=== PATIENT | male | born 1950 | race African-American/Black ===

== ENCOUNTER 2016-11-05 08:56 | Inpatient (IN) | payer BC ==
[2016-11-02 18:52] VITALS: BMI 25.3
[~2016-11-05] VITALS: Ht 167.6 cm; Wt 70.0 kg
[2016-11-05] VITALS (30 sets, daily range): BP systolic 122–150; BP diastolic 69–99; PULSE 74–97; RESP 14–21; Ht 167.6 cm; Wt 70.0 kg
[~2016-11-05 08:56] MED LIST: CEFAZOLIN 1 GM INJ ONE; ROCURONIUM 50 MG INJ ONE
[2016-11-05] MEDS ORDERED: AMLO5TAB4 PO (10:11)
[2016-11-05] MEDS ORDERED: POLYMYXIN/BACITRACIN 1L IRRIG ONE (10:25)
[2016-11-05] MEDS ORDERED: BUPIVACAINE 0.25%/EPI (SDV) 30 ML INJ ONE (10:29)
[2016-11-05] MEDS ORDERED: BUPIVACAINE 0.25% (MPF) 10 ML 10 ML VIAL ONE (10:29)
[2016-11-05] MEDS ORDERED: SURGIFOAM POWDER 1 GM KIT ONE (10:29)
[2016-11-05] MEDS ORDERED: FENTAnyl 50 MCG/ML VIAL ONE (10:30)
[2016-11-05] MEDS ORDERED: THROMBIN 5000 UNIT VIAL ONE ×2 (10:30→12:37)
[2016-11-05] MEDS ORDERED: SODIUM CL BACTERIOSTATIC 30 ML INJ ONE (10:30)
[2016-11-05] MEDS ORDERED: CA CHLORIDE 10% 10 ML SYRINGE ONE (10:30)
[2016-11-05] MEDS: D5W-0.45 NACL + KCL 20 MEQ 1,000 ML IV SCH ×3 (11:04→19:51)
--- NOTE | 2016-11-05 11:04 | HPN ---
Date/Time of Note Date/Time of Note DATE: 11/05/16 TIME: 11:04 Interval H&P Admission Note Pt. seen H&P reviewed: No system changes KAT ABDI MD Nov 05, 2016 11:04
[2016-11-05] MEDS ORDERED: GELATIN SIZE 100 SPONGE ONE (11:06)
[2016-11-05] MEDS ORDERED: LIDOCAINE 2% (SDV) 5 ML INJ ONE (11:09)
[2016-11-05] MEDS ORDERED: PROPOFOL 20 ML ONE (11:09)
[2016-11-05] MEDS ORDERED: DIPHENHYDRAMINE 25 MG CAP PO PRN (11:30)
[2016-11-05] MEDS ORDERED: BISACODYL 10 MG SUPP PR PRN (11:30)
[2016-11-05] MEDS ORDERED: NALOXONE (0.4 MG/ML) INJ IV PRN (11:30)
[2016-11-05] MEDS ORDERED: CYCLOBENZAPRINE 10 MG TAB PO PRN (11:30)
[2016-11-05] MEDS ORDERED: AL HYDROX/MG HYDROX/SIMETH 30 ML CUP PO PRN (11:30)
[2016-11-05] MEDS ORDERED: CEPASTAT LOZENGE MT PRN (11:30)
[2016-11-05] MEDS ORDERED: ACETAMINOPHEN 325 MG TAB PO PRN (11:30)
[2016-11-05] MEDS ORDERED: DIPHENHYDRAMINE 50 MG INJ IV PRN (11:30)
[2016-11-05] MEDS ORDERED: HYDROmorphONE 0.2 MG/ML PCA IV SCH (11:30)
[2016-11-05] MEDS ORDERED: CEFAZOLIN 1 GM INJ ONE (11:41)
[2016-11-05] MEDS ORDERED: HEPARIN 1000 UNITS/ML 10 ML INJ ONE (11:45)
[2016-11-05] MEDS: CEFAZOLIN 1 GM/50 ML (PMX) 50 ML IVPB SCH ×2 (12:00→19:51)
[2016-11-05] MEDS ORDERED: MEPERIDINE 100 MG INJ ONE (12:05)
[2016-11-05] MEDS ORDERED: THROMBIN(HUM PLAS)/FIBRINOG/CA 5 ML VIAL TOP ONE (12:46)
[2016-11-05] MEDS ORDERED: EPHEDrine SULFATE 50 MG/5 ML SYG IV PRN (13:00)
[2016-11-05] MEDS ORDERED: hydrALAzine 20 MG INJ IV PRN (13:00)
[2016-11-05] MEDS ORDERED: HYDROmorphONE (0.2 MG/ML) 10ML SYG IV PRN ×3 (13:00)
[2016-11-05] MEDS ORDERED: FENTAnyl 50 MCG/ML VIAL IV PRN ×3 (13:00)
[2016-11-05] MEDS ORDERED: LABETALOL HCL 20MG INJ IV PRN (13:00)
[2016-11-05] MEDS ORDERED: MEPERIDINE 25 MG INJ IV PRN (13:00)
[2016-11-05] MEDS ORDERED: ONDANSETRON 4 MG INJ IV PRN (13:00)
[2016-11-05] MEDS ORDERED: SURGIFOAM POWDER 1 GM KIT MM ONE (13:45)
[2016-11-05] MEDS ORDERED: CEFAZOLIN 1 GM INJ ZFS ONE (13:46)
[2016-11-05] MEDS ORDERED: DEXAMETHASONE 4 MG/ML 1 ML INJ ONE (14:05)
[2016-11-05] MEDS ORDERED: ONDANSETRON 4 MG INJ ONE (14:05)
--- NOTE | 2016-11-05 14:31 | RADRPT ---
PROCEDURE: Intraoperative XR. CLINICAL INDICATION: Intraoperative radiograph during lumbar spine surgery. TECHNIQUE: Spot intraoperative lateral lumbar x-ray image was provided. The images were reviewed on a high-resolution PACS workstation. COMPARISON: None available FINDINGS: Spot intraoperative lateral lumbar view were provided during lumbar spine surgery. The images demon strate metallic probes at the level of L3-4 and L5. IMPRESSION: 1. Spot intraoperative lateral lumbar view during lumbar surgery were provided. 2. Please see operative report of the same day for further information. RPTAT: DD .Ham Rivera MD, MD Date Time Electronically viewed and signed by .Ham Rivera MD, on 11/05/2016 14:31 .S/
--- NOTE | 2016-11-05 14:32 | RADRPT ---
PROCEDURE: Intraoperative XR. CLINICAL INDICATION: Intraoperative radiograph during lumbar spine surgery. TECHNIQUE: Spot intraoperative lateral lumbar x-ray image was provided. The images were reviewed on a high-resolution PACS workstation. COMPARISON: None available FINDINGS: Spot intraoperative lateral lumbar view were provided during lumbar spine surgery. The images demon strate metallic instrumentation at the level of L4-5 and L5-S1. IMPRESSION: 1. Spot intraoperative lateral lumbar view during lumbar spine surgery were provided. 2. Please see operative report of the same day for further information. RPTAT: HGAS .Ham Rivera MD, Date Time Electronically viewed and signed by .Ham Rivera MD, on 11/05/2016 14:32 .S/
[2016-11-05] MEDS ORDERED: METOCLOPRAMIDE 10 MG INJ ONE (15:15)
[2016-11-05] MEDS ORDERED: METOCLOPRAMIDE 10 MG INJ IV ONE (15:30)
--- NOTE | 2016-11-05 16:11 | OPPN ---
Date/Time of Note Date/Time of Note DATE: 11/05/16 TIME: 16:11 Post-Anesthesia Notes Post-Anesthesia Note Last documented vital signs Vital Signs Date Time Temp Pulse Resp B/P Pulse Ox O2 Delivery O2 Flow Rate FiO2 11/05/16 14:30 98.7 11/05/16 14:23 90 16 141/99 99 Nasal Cannula 2.0 Activity: WNL Respiratory function: WNL Cardiovascular function: WNL Mental status: Baseline Pain reasonably controlled: Yes Hydration appropriate: Yes Nausea/Vomiting absent: Yes VINCENZO SANDOVAL Nov 05, 2016 16:11
--- NOTE | 2016-11-05 16:51 | OPR ---
DATE OF OPERATION: 11/05/2016 PREOPERATIVE DIAGNOSES: 1. L4-L5 and L5-S1 stenosis. 2. Previous L4-L5 decompression. 3. Lumbosacral radiculopathy. POSTOPERATIVE DIAGNOSES: 1. L4-L5 and L5-S1 stenosis. 2. Previous L4-L5 decompression. 3. Lumbosacral radiculopathy. PROCEDURES: 1. Central decompressive laminectomy at L4-L5 and L5-S1 and decompression of L4, L5, S1 nerve roots bilaterally. 2. Repair of dural tear. 3. Lateral localizing film x2. 4. Intraoperative neuromonitoring (2 hours). PRIMARY SURGEON: Jamie Chou MD INFORMATION TECHNOLOGY ASSISTANT: EYAL Joaquin NEED FOR DISH TECHNICIAN: During this spinal surgical procedure, my assistant center director was used to retrac t and protect the spinal nerves and dural sac. My assistant center director also employed the suction catheters to evacuate blood from the surgical field to improve visualization of the neural structures. The quique tant was medically necessary to facilitate the completion of the surgery in a safe and expeditious m skyler. State of [place] regulations, as well as hospital bylaws, preclude the use of non-license d health care personnel, such as operating room technicians, to perform these functions. FINDINGS: Neuromonitoring at start of the case revealed right L4 amplitude down 40%, bilateral L5 a nd S1 amplitude down 30%. At end of the case, all nerve signals returned to normal. A small centra l annular tear was identified at the L4-L5 level. ESTIMATED BLOOD LOSS: 100 mL DRAINS: 1 SPECIMENS: Spinous process sent to Pathology. COMPLICATIONS OF PROCEDURE: Dural tear. ANESTHESIOLOGIST: Dr. Hood TYPE OF ANESTHESIA: General anesthesia. INDICATIONS FOR PROCEDURE: This is a 66-year-old gentleman with lumbosacral radiculopathy bilateral ly. He had previously undergone L4-L5 decompression elsewhere. He continued to have symptoms. The refore, I recommended proceeding with the above-mentioned surgery. Preoperatively we discussed risk s, benefits, alternatives. He understood, wished to proceed. DESCRIPTION OF PROCEDURE IN DETAIL: The patient was identified in preoperative holding area, given Ancef antibiotic, taken to the operating room, where he was successfully placed under general anesth esia by Dr. Hood. Neuromonitoring leads were placed. Sequential compressive devices were applied. Hammond catheter was introduced. Neuromonitoring was utilized during the procedure for 2 hours to in clude SSEP, MEP and EMG. This was performed by [place]. Start time was 12:00 p.m., closur e time was 2:00 p.m. The patient was placed on the operating table in prone position over Lucas fr ria. All bony prominences were padded. The back was then prepped, draped in usual sterile fashion. Spinal needles were placed. Lateral localizing film was obtained to confirm the correct levels. Once this was confirmed, I injected the paraspinal musculature with 0.25% Marcaine and epinephrine. An incision was then made over the L4-L5 and L5-S1 levels. Incision was taken down to the dorsal f ascia, which was incised with Bovie cautery. I then subperiosteally dissected the L4, L5 and S1 lei ursula. Kerrisons were placed under the lamina of L4 and L5, and a repeat lateral film was obtained to confirm the correct levels. Once this was confirmed, central decompressive laminectomy was perform ed at the L4-L5 and L5-S1 levels. Lateral recess was decompressed. Ligamentum flavum was then melva laine. I then decompressed the L4, L5 and S1 nerve roots bilaterally throughout their intraspinal cou rse. Once this was done, all nerve signals returned to normal. Hemostasis was achieved with bipola r cautery, Surgifoam, Gelfoam and thrombin. I used bone wax on the bony edges. Essentially, there was a very small pinpoint tear. It is not clear if this was due to a previous epidural or due to th e scar tissue. Of note, scar tissue was identified at the L4-L5 level from the previous surgeries, complicating this level. The hole was too small for a stitch repair, and therefore after I irrigate d the wound, I placed DuraGen overlying the tear followed by injection of Evicel while the anesthesi ologist held respirations 2 minutes. Once this was done, the Evicel was hardened, and I did not tommy ntify any other leaks. Retractors were removed, and I placed a deep subfascial drain, staying close to the fascia, not directly over the dura. I then closed the fascia with a #1 Stratafix suture. I then closed subcutaneous tissue with 2-0 Vicryl stitch. A 4-0 Monocryl closure was then performed. Dermabond and sterile dressings were then applied. The patient was then awakened from anesthesia and taken to the recovery room in stable condition. Lap, sponge and instrument counts correct x2. The patient will be admitted to [facility] for postoperative neurovascular checks, antibiotics, and physical therapy will be started on postoperative day 1 if the patient has no headaches. Dictated By: JAMIE RESENDIZ/SUN Conf#: [id number] DID#: [id number]
[2016-11-05] MEDS: ONDANSETRON 4 MG INJ IV PRN (18:03)
[2016-11-05] MEDS: DOCUSATE SODIUM 100 MG CAP PO SCH (19:52)
--- NOTE | 2016-11-05 22:30 | CONS ---
DATE OF ADMISSION: 11/05/2016 DATE OF CONSULTATION: 11/05/2016 REASON FOR CONSULTATION: Thank you very much for allowing me to evaluate this 66-year-old male who just underwent lumbar back surgery. HISTORICAL EVENTS: As you well know, this patient began having pain involving his back and related left leg pain in early 2015 and, in November, he underwent microsurgical diskectomies. Because of recurr ence of his pain, he ultimately underwent evaluation by you and, because of no improvement after epi dural injections, elected to proceed with surgery. Postoperatively, on the orthopedic floor, he is comfortable without shortness of breath, cough, wheezing, or chest pain. He does note some mild keli sea without abdominal pain. PAST MEDICAL HISTORY: Unrevealing except for hypertension, hyperlipidemia, benign prostatic hypertr ophy. MEDICATIONS: Amlodipine 5 day. ALLERGIES: NONE. PHYSICAL EXAMINATION: GENERAL: Somnolent male in no acute distress. VITAL SIGNS: BP 122/80, pulse 70, respirations are 20. He was afebrile. EYES: Extraocular muscles were full. NOSE, MOUTH, AND THROAT: Normal. NECK: Supple. There was no jugular venous distention, thyroid enlargement, or adenopathy. LUNGS: Clear. HEART: Rhythm regular. No murmur. No third or fourth sound. ABDOMEN: Nontender. Liver and spleen were not palpable. No masses or tenderness were noted. EXTREMITIES: No edema, no calf tenderness. NEUROLOGIC: No lateralizing motor weakness. IMPRESSION: 1. Stable postop lumbar back surgery. 2. History of hypertension. We will resume amlodipine 10 and hold the same if systolic less than 1 20. 3. Will evaluate daily for signs and symptoms of thromboembolic disease. Dictated By: QUAN PAZ/SUN Conf#: [id number] DID#: [id number] CC: KAT ABDI MD;*EndCC*
[2016-11-06] MEDS: CEFAZOLIN 1 GM/50 ML (PMX) 50 ML IVPB SCH (04:27)
[2016-11-06] MEDS: ONDANSETRON 4 MG INJ IV PRN (04:27)
[2016-11-06 04:50] LABS: ADD SCAN DIFF NO
[2016-11-06 04:51] VITALS: BP 122/75; PULSE 89; RESP 18
[2016-11-06 04:58] LABS: POTASSIUM 3.8 mmol/L (3.5-5.1)
[2016-11-06 04:59] LABS: BASOPHILS % 0.1 % (0.0-2.0); HEMATOCRIT 38.5 % (42.0-52.0); HEMOGLOBIN 12.9 g/dl (14.0-18.0); LYMPHOCYTES # 0.8 10^3/ul (0.8-2.9); LYMPHOCYTES % 6.8 % (15.0-51.0); MEAN CORPUSCULAR HEMOGLOBIN 31.4 pg (29.0-33.0); MEAN CORPUSCULAR HGB CONC 33.5 g/dl (32.0-37.0); MEAN CORPUSCULAR VOLUME 93.7 fl (82.0-101.0); MEAN PLATELET VOLUME 9.6 fl (7.4-10.4); MONOCYTES % 8.7 % (0.0-11.0); NEUTROPHIL # 9.6 10^3/ul (1.6-7.5); NEUTROPHILS % 83.9 % (39.0-77.0); PLATELET COUNT 229 10^3/UL (140-415); RED BLOOD COUNT 4.11 10^6/ul (4.70-6.10); RED CELL DISTRIBUTION WIDTH 12.7 % (11.5-14.5); WHITE BLOOD COUNT 11.5 10^3/ul (4.8-10.8)
[2016-11-06 05:10] VITALS: BP 151/90; PULSE 96; RESP 19
[2016-11-06 05:15] VITALS: BP_SYST 14; BP_SYST 147; BP_DIAS 86; PULSE 90; RESP 19
[2016-11-06 05:31] LABS: CALCIUM 8.5 mg/dl (8.4-10.2); CREATININE 0.75 mg/dl (0.61-1.24); MAGNESIUM 1.8 mg/dl (1.7-2.5)
[2016-11-06] MEDS ORDERED: PANTOPRAZOLE 40 MG INJ IV SCH (06:00)
[2016-11-06 06:39] VITALS: BP 133/74; PULSE 83; RESP 18
--- NOTE | 2016-11-06 08:31 | CONS ---
Date/Time of Note Date/Time of Note DATE: 11/06/16 TIME: 08:26 Assessment/Plan Assessment/Plan Additional Assessment/Plan 1. S/P laminectomy with mod pain.' 2. Nausea sec to pain meds. 3. Chest pain, ? related to zofran. Will observe after change in pain meds and will obtain ekg. 4. BP, hx of, controlled. Consultation Date/Type/Reason Admit Date/Time Nov 05, 2016 at 08:56 Initial Consult Date Detailed Summary Respiratory: cough (mod) Cardiovascular: chest pain (occurs after he receives zofran which inc with deep inspiration and does not radiate to neck, arm or jaw. He is not sob) Gastrointestinal: nausea (occurs after each dose of iv pain meds), No pain, No vomiting Genitourinary: other (dillon in place) Musculoskeletal: back pain (moderate when attempting to move) Exam/Review of Systems Vital Signs Vitals Vital Signs Date Time Temp Pulse Resp B/P Pulse Ox O2 Delivery O2 Flow Rate FiO2 11/06/16 06:39 83 18 133/74 98 Nasal Cannula 2.0 11/06/16 04:51 98.2 Intake and Output 11/05/16 11/05/16 11/06/16 15:00 23:00 07:00 Intake Total 1500 ml 1560 ml Output Total 55 ml 375 ml 1320 ml Balance 1445 ml -375 ml 240 ml Exam Neck: No jvd Respiratory: clear to auscultation Cardiovascular: regular rate and rhythm Extremities: No edema (and no calf tend), No tenderness (bilat) Results Result Diagram: 11/06/16 0437 11/06/16 0437 Results 24 hrs Laboratory Tests Test 11/06/16 04:37 White Blood Count 11.5 H Red Blood Count 4.11 L Hemoglobin 12.9 L Hematocrit 38.5 L Mean Corpuscular Volume 93.7 Mean Corpuscular Hemoglobin 31.4 Mean Corpuscular Hemoglobin Concent 33.5 Red Cell Distribution Width 12.7 Platelet Count 229 Mean Platelet Volume 9.6 Neutrophils % 83.9 H Lymphocytes % 6.8 L Monocytes % 8.7 Eosinophils % 0.0 Basophils % 0.1 Nucleated Red Blood Cells % 0.0 Neutrophils # 9.6 H Lymphocytes # 0.8 Monocytes # 1.0 H Eosinophils # 0.0 Basophils # 0.0 Nucleated Red Blood Cells # 0.0 Sodium Level 138 Potassium Level 3.8 Chloride Level 102 Carbon Dioxide Level 26 Anion Gap 14 Blood Urea Nitrogen 15 Creatinine 0.75 Glucose Level 163 Calcium Level 8.5 Magnesium Level 1.8 Medications Medications Current Medications Potassium Chloride/Dextrose/ Sod Cl (D5-1/2ns + KCl 20 Meq) 1,000 ml @ 100 mls/ hr Q10H IV Last administered on 11/05/16 19:51; Admin Dose 100 MLS/HR; Start 11/05/16 at 11:04 Acetaminophen/ Hydrocodone Bitart ([place] ()) 1 tab Q4H PRN PO PAIN LEVEL 1-5; Start 11/07/16 at 10:00 Acetaminophen/ Hydrocodone Bitart ([place] ()) 2 tab Q4H PRN PO PAIN LEVEL 6-10; Start 11/07/16 at 10:00 Hydromorphone HCl (Dilaudid) 0.2 mg Q1H PRN IV BREAKTHROUGH PAIN; Start at 11:30 Ondansetron HCl (Zofran Inj) 4 mg Q6H PRN IV NAUSEA AND/OR VOMITING Last administered on 11/06/16 04:27; Admin Dose 4 MG; Start 11/05/16 at 11:30 Bisacodyl (Dulcolax Supp) 10 mg DAILY PRN [place] CONSTIPATION; Start 11/05/16 at 11 :30 Docusate Sodium (Colace) 100 mg BID PO ; Start 11/05/16 at 21:00 Pantoprazole (Protonix Iv) 40 mg DAILY@06 IV Last administered on 11/06/16 04: 32; Admin Dose 40 MG; Start 11/06/16 at 06:00 Al Hydrox/Mg Hydrox/Simethicone (Mag-Al Plus) 15 ml Q6H PRN PO CONSTIPATION/ DYSPEPSIA; Start 11/05/16 at 11:30 Acetaminophen (Tylenol Tab) 650 mg Q4H PRN PO TEIXEIRA OR TEMP GREATER THAN 101.3F; Start 11/05/16 at 11:30 Cyclobenzaprine HCl (Flexeril) 10 mg TID PRN PO MUSCLE SPASMS; Start 11/05/16 at 11:30 Phenol (Cepastat Lozenge) 1 lozenge PRN PRN [place] SORE THROAT Last administered on 11/06/16 04:32; Admin Dose 1 LOZENGE; Start 11/05/16 at 11:30 Diphenhydramine HCl (Benadryl) 25 mg Q6H PRN PO ITCHING; Start 11/05/16 at 11: 30 Diphenhydramine HCl (Benadryl) 25 mg Q6H PRN IV ITCHING; Start 11/05/16 at 11: 30 Naloxone HCl (Narcan) 0.2 mg Q2M PRN IV RR 8 BREATHS/MIN OR LESS; Start at 11:30 Hydromorphone HCl (Dilaudid BALLAST INSPECTOR) BALLAST INSPECTOR to be started in PACU Q4PCA IV Last administered on 11/05/16 14:39; Admin Dose 6 MG; Start 11/05/16 at 11:30; Status Future Hold Miscellaneous Information 1. Hold BALLAST INSPECTOR at 1,000... BALLAST INSPECTOR IV ; Start 11/05/16 at 11: 30 Acetaminophen/ Hydrocodone Bitart ([place] (10/325)) 2 tab ONCE@0930 PO ; Start at 09:30; Stop 11/07/16 at 12:00 QUAN ARMIJO MD Nov 06, 2016 08:31
[2016-11-06] MEDS ORDERED: TRIMETHOBENZAMIDE 100 MG/ML VIAL IM PRN (09:00)
[2016-11-06] MEDS: D5W-0.45 NACL + KCL 20 MEQ 1,000 ML IV SCH ×2 (09:03→18:27)
[2016-11-06] MEDS: DOCUSATE SODIUM 100 MG CAP PO SCH ×2 (09:03→20:28)
[2016-11-06] MEDS ORDERED: HYDROCODONE/APAP (10/325) TAB PO SCH (09:30)
[2016-11-06] MEDS ORDERED: HYDROCODONE/APAP (10/325) TAB PO ONE (10:00)
--- NOTE | 2016-11-06 10:14 | PN ---
Date/Time of Note Date/Time of Note DATE: 11/06/16 TIME: 10:13 Assessment/Plan Lines/Catheters IV Catheter Type (from Nrsg): Peripheral IV Hammond in Place (from Nrsg): Yes Assessment/Plan Assessment/Plan s/p lumbar decompression caffeine 200mg PO now start PT this PM please call if pt c/o TEIXEIRA when he gets up Subjective 24 Hr Interval Summary pt c/o nausea, TEIXEIRA improvement in legs Exam/Review of Systems Vital Signs Vitals Vital Signs Date Time Temp Pulse Resp B/P Pulse Ox O2 Delivery O2 Flow Rate FiO2 11/06/16 06:39 83 18 133/74 98 Nasal Cannula 2.0 11/06/16 04:51 98.2 Intake and Output 11/05/16 11/05/16 11/06/16 15:00 23:00 07:00 Intake Total 1500 ml 1560 ml Output Total 55 ml 375 ml 1320 ml Balance 1445 ml -375 ml 240 ml Exam Free Text/Dictation NVID Results Result Diagram: 11/06/16 0437 11/06/16 0437 SHANE WHITLOCK PA-C Nov 06, 2016 10:14
[2016-11-06] MEDS ORDERED: CAFFEINE 200 MG TABLET PO ONE (11:00)
[2016-11-06] MEDS ORDERED: HYDROCODONE/APAP (10/325) TAB PO PRN (14:00)
[2016-11-06] MEDS: METOCLOPRAMIDE 10 MG INJ IV SCH (18:27)
[2016-11-06] MEDS: PANTOPRAZOLE 40 MG INJ IV SCH (18:28)
[2016-11-06] MEDS ORDERED: ONDANSETRON 4 MG INJ IV PRN (18:30)
[2016-11-06 19:22] VITALS: BP 134/73; RESP 14
[2016-11-07] MEDS: METOCLOPRAMIDE 10 MG INJ IV SCH ×4 (00:07→18:20)
[2016-11-07] MEDS: D5W-0.45 NACL + KCL 20 MEQ 1,000 ML IV SCH (03:04)
[2016-11-07 05:24] LABS: ADD SCAN DIFF NO
[2016-11-07 05:34] LABS: BASOPHILS % 0.2 % (0.0-2.0); EOSINOPHILS % 0.2 % (0.0-7.0); HEMATOCRIT 41.5 % (42.0-52.0); LYMPHOCYTES % 8.2 % (15.0-51.0); MEAN CORPUSCULAR HEMOGLOBIN 31.5 pg (29.0-33.0); MEAN CORPUSCULAR HGB CONC 33.7 g/dl (32.0-37.0); MEAN CORPUSCULAR VOLUME 93.3 fl (82.0-101.0); MEAN PLATELET VOLUME 10.1 fl (7.4-10.4); MONOCYTE # 1.2 10^3/ul (0.3-0.9); MONOCYTES % 9.6 % (0.0-11.0); NEUTROPHIL # 9.9 10^3/ul (1.6-7.5); NEUTROPHILS % 81.5 % (39.0-77.0); PLATELET COUNT 236 10^3/UL (140-415); RED BLOOD COUNT 4.45 10^6/ul (4.70-6.10); RED CELL DISTRIBUTION WIDTH 12.7 % (11.5-14.5); WHITE BLOOD COUNT 12.1 10^3/ul (4.8-10.8)
[2016-11-07] MEDS: PANTOPRAZOLE 40 MG INJ IV SCH ×2 (05:35→18:19)
[2016-11-07 05:42] LABS: CALCIUM 8.7 mg/dl (8.4-10.2); CREATININE 0.71 mg/dl (0.61-1.24); MAGNESIUM 2.2 mg/dl (1.7-2.5); POTASSIUM 3.3 mmol/L (3.5-5.1)
[2016-11-07 07:24] VITALS: BP 141/91; RESP 19
[2016-11-07] MEDS: HYDROCODONE/APAP (10/325) TAB PO PRN ×3 (08:20→20:24)
--- NOTE | 2016-11-07 09:05 | RADRPT ---
Vent Rate: 90 bpm RR Interval: 0 msec GA Interval: 188 msec QRS Duration: 114 msec QT Interval: 382 msec QTC Interval: 467 msec P-R-T [place]: 67 - -50 - 69 degrees Normal sinus rhythm Left axis deviation Right bundle branch block Abnormal ECG Electronically Signed By: Jace Reed [id number]
[2016-11-07] MEDS: DOCUSATE SODIUM 100 MG CAP PO SCH ×2 (09:22→20:24)
[2016-11-07] MEDS ORDERED: HYDROCODONE/APAP (10/325) TAB PO SCH (09:30)
--- NOTE | 2016-11-07 09:56 | PN ---
Date/Time of Note Date/Time of Note DATE: 11/07/16 TIME: 09:55 Assessment/Plan Lines/Catheters IV Catheter Type (from Nrsg): Peripheral IV Hammond in Place (from Nrsg): Yes Assessment/Plan Assessment/Plan Status post lumbar decompression with dural tear The patient denies headaches or nausea. Drain output is too high to remove. Possible discharge tomorrow Subjective 24 Hr Interval Summary No headaches or nausea Exam/Review of Systems Vital Signs Vitals Vital Signs Date Time Temp Pulse Resp B/P Pulse Ox O2 Delivery O2 Flow Rate FiO2 11/07/16 07:24 98.0 96 19 141/91 98 11/06/16 06:39 Nasal Cannula 2.0 Intake and Output 11/06/16 11/06/16 11/07/16 15:00 23:00 07:00 Intake Total 1300 ml 1400 ml Output Total 1600 ml 2700 ml Balance -300 ml -1300 ml Exam Free Text/Dictation Neurovascularly intact Results Result Diagram: 11/07/16 0456 11/07/16 0456 KAT ABDI MD Nov 07, 2016 09:56
[2016-11-07] MEDS ORDERED: HYDROCODONE/APAP (10/325) TAB PO PRN ×2 (10:00)
[2016-11-07] MEDS: HYDROmorphONE 1 MG/ML SYG IV PRN ×2 (10:10→18:20)
[2016-11-07] MEDS ORDERED: POTASSIUM CHLORIDE (SR) 20 MEQ TAB PO STA (11:03)
--- NOTE | 2016-11-07 11:13 | CONS ---
Date/Time of Note Date/Time of Note DATE: 11/07/16 TIME: 11:08 Assessment/Plan Assessment/Plan Chief Complaint/Hosp Course 1. He is 1 day post op a lumbar spine surgery . He is doing well . 2 continue current medication and PT 3. potassium is low , will replace . Problems: Consultation Date/Type/Reason Admit Date/Time Nov 05, 2016 at 08:56 Initial Consult Date 24 HR Interval Summary Free Text/Dictation He is 2 days post op a lumbar spine surgery . Constitutional: no complaints Exam/Review of Systems Vital Signs Vitals Vital Signs Date Time Temp Pulse Resp B/P Pulse Ox O2 Delivery O2 Flow Rate FiO2 11/07/16 07:24 98.0 96 19 141/91 98 11/06/16 06:39 Nasal Cannula 2.0 Intake and Output 11/06/16 11/06/16 11/07/16 15:00 23:00 07:00 Intake Total 1300 ml 1400 ml Output Total 1600 ml 2700 ml Balance -300 ml -1300 ml Exam Constitutional: alert, oriented, well developed Respiratory: clear to auscultation, normal air movement Cardiovascular: regular rate and rhythm Gastrointestinal: non-tender, soft Musculoskeletal: nl extremities to inspection Results Result Diagram: 11/07/16 0456 11/07/16 0456 Results 24 hrs Laboratory Tests Test 11/07/16 04:56 White Blood Count 12.1 H Red Blood Count 4.45 L Hemoglobin 14.0 Hematocrit 41.5 L Mean Corpuscular Volume 93.3 Mean Corpuscular Hemoglobin 31.5 Mean Corpuscular Hemoglobin Concent 33.7 Red Cell Distribution Width 12.7 Platelet Count 236 Mean Platelet Volume 10.1 Neutrophils % 81.5 H Lymphocytes % 8.2 L Monocytes % 9.6 Eosinophils % 0.2 Basophils % 0.2 Nucleated Red Blood Cells % 0.0 Neutrophils # 9.9 H Lymphocytes # 1.0 Monocytes # 1.2 H Eosinophils # 0.0 Basophils # 0.0 Nucleated Red Blood Cells # 0.0 Sodium Level 138 Potassium Level 3.3 L Chloride Level 102 Carbon Dioxide Level 28 Anion Gap 11 Blood Urea Nitrogen 9 Creatinine 0.71 Glucose Level 132 Calcium Level 8.7 Magnesium Level 2.2 Medications Medications Current Medications Hydromorphone HCl (Dilaudid) 0.2 mg Q1H PRN IV BREAKTHROUGH PAIN Last administered on 11/07/16 10:10; Admin Dose 0.2 MG; Start 11/05/16 at 11:30 Bisacodyl (Dulcolax Supp) 10 mg DAILY PRN [place] CONSTIPATION; Start 11/05/16 at 11 :30 Docusate Sodium (Colace) 100 mg BID PO Last administered on 11/07/16 09:22; Admin Dose 100 MG; Start 11/05/16 at 21:00 Al Hydrox/Mg Hydrox/Simethicone (Mag-Al Plus) 15 ml Q6H PRN PO CONSTIPATION/ DYSPEPSIA; Start 11/05/16 at 11:30 Acetaminophen (Tylenol Tab) 650 mg Q4H PRN PO TEIXEIRA OR TEMP GREATER THAN 101.3F; Start 11/05/16 at 11:30 Cyclobenzaprine HCl (Flexeril) 10 mg TID PRN PO MUSCLE SPASMS; Start 11/05/16 at 11:30 Phenol (Cepastat Lozenge) 1 lozenge PRN PRN [place] SORE THROAT Last administered on 11/06/16 04:32; Admin Dose 1 LOZENGE; Start 11/05/16 at 11:30 Diphenhydramine HCl (Benadryl) 25 mg Q6H PRN PO ITCHING; Start 11/05/16 at 11: 30 Diphenhydramine HCl (Benadryl) 25 mg Q6H PRN IV ITCHING; Start 11/05/16 at 11: 30 Naloxone HCl (Narcan) 0.2 mg Q2M PRN IV RR 8 BREATHS/MIN OR LESS; Start at 11:30 Pantoprazole (Protonix Iv) 40 mg BID@18 IV Last administered on 11/07/16 05 :35; Admin Dose 40 MG; Start 11/06/16 at 18:00 Acetaminophen/ Hydrocodone Bitart ([place] (10/325)) 1 tab Q4H PRN PO PAIN LEVEL 1-5 Last administered on 11/07/16 08:20; Admin Dose 1 TAB; Start 11/06/16 at 14 :00 Acetaminophen/ Hydrocodone Bitart ([place] (10/325)) 2 tab Q4H PRN PO PAIN LEVEL 6-10; Start 11/06/16 at 14:00 Ondansetron HCl (Zofran Inj) 4 mg Q6H PRN IV NAUSEA AND/OR VOMITING; Start at 18:30 Metoclopramide HCl (Reglan) 10 mg Q6 IV Last administered on 11/07/16t 05:35; Admin Dose 10 MG; Start 11/06/16 at 18:30 LUISITO GRACE MD Nov 07, 2016 11:13
[2016-11-07 20:44] VITALS: BP 136/81; RESP 20
[2016-11-08] MEDS: METOCLOPRAMIDE 10 MG INJ IV SCH ×2 (00:16→05:16)
[2016-11-08 05:12] LABS: ADD SCAN DIFF NO
[2016-11-08 05:15] LABS: BASOPHILS % 0.2 % (0.0-2.0); EOSINOPHILS % 0.3 % (0.0-7.0); HEMATOCRIT 40.1 % (42.0-52.0); HEMOGLOBIN 13.8 g/dl (14.0-18.0); LYMPHOCYTES # 0.9 10^3/ul (0.8-2.9); LYMPHOCYTES % 9.2 % (15.0-51.0); MEAN CORPUSCULAR HEMOGLOBIN 31.9 pg (29.0-33.0); MEAN CORPUSCULAR HGB CONC 34.4 g/dl (32.0-37.0); MEAN CORPUSCULAR VOLUME 92.8 fl (82.0-101.0); MEAN PLATELET VOLUME 10.1 fl (7.4-10.4); MONOCYTE # 1.3 10^3/ul (0.3-0.9); MONOCYTES % 12.7 % (0.0-11.0); NEUTROPHIL # 7.6 10^3/ul (1.6-7.5); PLATELET COUNT 232 10^3/UL (140-415); RED BLOOD COUNT 4.32 10^6/ul (4.70-6.10); RED CELL DISTRIBUTION WIDTH 12.5 % (11.5-14.5); WHITE BLOOD COUNT 9.9 10^3/ul (4.8-10.8)
[2016-11-08 05:31] LABS: ALBUMIN 3.8 g/dl (3.3-4.9)
[2016-11-08 05:32] LABS: POTASSIUM 3.6 mmol/L (3.5-5.1)
[2016-11-08 05:33] LABS: POTASSIUM 3.4 mmol/L (3.5-5.1)
[2016-11-08 05:34] LABS: ALBUMIN/GLOBULIN RATIO 1.26; BILIRUBIN,INDIRECT 0.8 mg/dl (0-1.1); BILIRUBIN,TOTAL 0.8 mg/dl (0.2-1.3); CREATININE 0.67 mg/dl (0.61-1.24); TOTAL PROTEIN 6.8 g/dl (6.1-8.1)
[2016-11-08 05:35] LABS: CREATININE 0.69 mg/dl (0.61-1.24)
[2016-11-08 05:36] LABS: CALCIUM 8.9 mg/dl (8.4-10.2); MAGNESIUM 2.3 mg/dl (1.7-2.5)
[2016-11-08] MEDS ORDERED: PANTOPRAZOLE (EC) 40 MG TAB PO SCH (06:00)
--- NOTE | 2016-11-08 08:12 | DS ---
DATE OF ADMISSION: 11/05/2016 DATE OF DISCHARGE: 11/08/2016 ADMITTING DIAGNOSIS: Lumbar stenosis. DISCHARGE DIAGNOSIS: Lumbar stenosis. PROCEDURE: Patient was taken to the operating room on 11/08/2016 and underwent lumbar decompression . HOSPITAL COURSE: The patient was admitted to the [facility] after undergoing the above procedu re. His postoperative course was uncomplicated. By postoperative day 3 he was deemed stable for camille anton with followup. The patient had a dural tear at the time of surgery, but had no headaches af terwards. He required hospitalization until postoperative day #3 due to drain output. On postopera tive day #3 the drain was removed. Dictated By: KAT RESENDIZ/SUN Conf#: [id number] DID#: [id number]
[2016-11-08 08:28] VITALS: BP 138/90; RESP 18
[2016-11-08] MEDS: HYDROmorphONE 1 MG/ML SYG IV PRN (08:55)
[2016-11-08] MEDS: DOCUSATE SODIUM 100 MG CAP PO SCH (08:57)
--- NOTE | 2016-11-08 10:40 | CONS ---
Date/Time of Note Date/Time of Note DATE: 11/08/16 TIME: 10:38 Assessment/Plan Assessment/Plan Chief Complaint/Hosp Course 1. He is 3 days post op a lumbar spine surgery . He is doing well . 2 continue current medication and PT 3. Patient can be discharged home today.. Problems: Consultation Date/Type/Reason Admit Date/Time Nov 05, 2016 at 08:56 24 HR Interval Summary Free Text/Dictation He is now 3 days postop lumbar spine surgery. He is up walking and doing well. Constitutional: improved, no complaints Exam/Review of Systems Vital Signs Vitals Vital Signs Date Time Temp Pulse Resp B/P Pulse Ox O2 Delivery O2 Flow Rate FiO2 11/08/16 08:28 97.4 98 18 138/90 96 11/06/16 06:39 Nasal Cannula 2.0 Intake and Output 11/07/16 11/07/16 11/08/16 15:00 23:00 07:00 Intake Total 740 ml 800 ml Output Total 450 ml 10 ml Balance 290 ml 790 ml Exam Constitutional: alert, oriented, well developed Respiratory: clear to auscultation, normal air movement Cardiovascular: regular rate and rhythm Musculoskeletal: nl extremities to inspection Results Result Diagram: 11/08/16 0414 11/08/16 0414 Results 24 hrs Laboratory Tests Test 11/08/16 04:14 White Blood Count 9.9 Red Blood Count 4.32 L Hemoglobin 13.8 L Hematocrit 40.1 L Mean Corpuscular Volume 92.8 Mean Corpuscular Hemoglobin 31.9 Mean Corpuscular Hemoglobin Concent 34.4 Red Cell Distribution Width 12.5 Platelet Count 232 Mean Platelet Volume 10.1 Neutrophils % 77.0 Lymphocytes % 9.2 L Monocytes % 12.7 H Eosinophils % 0.3 Basophils % 0.2 Nucleated Red Blood Cells % 0.0 Neutrophils # 7.6 H Lymphocytes # 0.9 Monocytes # 1.3 H Eosinophils # 0.0 Basophils # 0.0 Nucleated Red Blood Cells # 0.0 Sodium Level 139 Potassium Level 3.6 Chloride Level 99 Carbon Dioxide Level 28 Anion Gap 16 Blood Urea Nitrogen 11 Creatinine 0.67 Glucose Level 112 Calcium Level 9.0 Magnesium Level 2.3 Total Bilirubin 0.8 Direct Bilirubin 0.00 Indirect Bilirubin 0.8 Aspartate Amino Transf (AST/SGOT) 39 Alanine Aminotransferase (ALT/SGPT) 26 Alkaline Phosphatase 59 Total Protein 6.8 Albumin 3.8 Globulin 3.00 Albumin/Globulin Ratio 1.26 Medications Medications Current Medications Hydromorphone HCl (Dilaudid) 0.2 mg Q1H PRN IV BREAKTHROUGH PAIN Last administered on 11/08/16 08:55; Admin Dose 0.2 MG; Start 11/05/16 at 11:30 Bisacodyl (Dulcolax Supp) 10 mg DAILY PRN [place] CONSTIPATION; Start 11/05/16 at 11 :30 Docusate Sodium (Colace) 100 mg BID PO Last administered on 11/08/16 08:57; Admin Dose 100 MG; Start 11/05/16 at 21:00 Al Hydrox/Mg Hydrox/Simethicone (Mag-Al Plus) 15 ml Q6H PRN PO CONSTIPATION/ DYSPEPSIA; Start 11/05/16 at 11:30 Acetaminophen (Tylenol Tab) 650 mg Q4H PRN PO TEIXEIRA OR TEMP GREATER THAN 101.3F; Start 11/05/16 at 11:30 Cyclobenzaprine HCl (Flexeril) 10 mg TID PRN PO MUSCLE SPASMS; Start 11/05/16 at 11:30 Phenol (Cepastat Lozenge) 1 lozenge PRN PRN [place] SORE THROAT Last administered on 11/06/16 04:32; Admin Dose 1 LOZENGE; Start 11/05/16 at 11:30 Diphenhydramine HCl (Benadryl) 25 mg Q6H PRN PO ITCHING; Start 11/05/16 at 11: 30 Diphenhydramine HCl (Benadryl) 25 mg Q6H PRN IV ITCHING; Start 11/05/16 at 11: 30 Naloxone HCl (Narcan) 0.2 mg Q2M PRN IV RR 8 BREATHS/MIN OR LESS; Start at 11:30 Acetaminophen/ Hydrocodone Bitart ([place] (10/325)) 1 tab Q4H PRN PO PAIN LEVEL 1-5 Last administered on 11/07/16 20:24; Admin Dose 1 TAB; Start 11/06/16 at 14 :00 Acetaminophen/ Hydrocodone Bitart ([place] (10/325)) 2 tab Q4H PRN PO PAIN LEVEL 6-10; Start 11/06/16 at 14:00 Ondansetron HCl (Zofran Inj) 4 mg Q6H PRN IV NAUSEA AND/OR VOMITING Last administered on 11/08/16 08:57; Admin Dose 4 MG; Start 11/06/16 at 18:30 Metoclopramide HCl (Reglan) 10 mg Q6 IV Last administered on 11/08/16 05:16; Admin Dose 10 MG; Start 11/06/16 at 18:30 Pantoprazole (Protonix Tab) 40 mg BID@,18 PO Last administered on 11/08/16 05:16; Admin Dose 40 MG; Start 11/08/16 at 06:00 LUISITO GRACE MD Nov 08, 2016 10:40
== END 2016-11-08 11:25 | disposition home or self-care (01) | DRG 516 ==
LOC: REC 08:56 → MS1 16:00
PROVIDERS: ADMIT Specialist; ATTEND Specialist
PROC: 00U20JZ Supplement Dura Mater with Synthetic Substitute, Open Approach (ICD-10-PCS; 2016-11-05)
PROC: 01NB0ZZ Release Lumbar Nerve, Open Approach (ICD-10-PCS; principal; 2016-11-05 12:00)
DX: M51.17 Intervertebral disc disorders with radiculopathy, lumbosacral region (principal); G96.11 Dural tear; I10 Essential (primary) hypertension; N40.0 Benign prostatic hyperplasia without lower urinary tract symptoms; E78.5 Hyperlipidemia, unspecified; R11.0 Nausea; R07.9 Chest pain, unspecified
CPT/HCPCS: 72020; 80048; 80053; 83735; 85025; 86850; 86900; 86901; 86999; 87086; 93005; 97116; 97162; 97530; C9113; C9250; J0690; J1100; J1170; J1644; J2175; J2405; J2765; J3010; J3250; J3480